=== PATIENT | male | born 1965 | race Caucasian/White ===

== ENCOUNTER 2024-08-14 14:39 | Emergency (ER) | payer OTHER, SELFPAY ==
[2024-08-14 14:42] VITALS: BP 144/73; PULSE 90; RESP 18; TEMP 36.5; O2SAT 99; BMI 21.2
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
[2024-08-14] MEDS: BACITRACIN OINT 0.9 GM PCKT 1 APPLIC TOP (15:25)
--- NOTE | 2024-08-14 15:54 | CM.SWNOTE ---
ED ELECTRICAL ENGINEERING MANAGER Note This ELECTRICAL ENGINEERING MANAGER receives referral to assist ED provider with wound care referral. ED provider fills out referral form, ELECTRICAL ENGINEERING MANAGER faxes referral, clincals and face sheet to wound care clinic. ELECTRICAL ENGINEERING MANAGER calls wound care clinic and leaves VM regarding referral. Patient to d/c to home upon medical clearance, patient to f/u with wound care referral. Marti Wong, MARKETING TRAFFIC COORDINATOR
== END 2024-08-14 15:52 | disposition home or self-care (01) ==
PROVIDERS: Emergency Provider Physician Assistant
DX: T25.222A Burn of second degree of left foot, initial encounter (principal); L03.116 Cellulitis of left lower limb; F17.210 Nicotine dependence, cigarettes, uncomplicated; B95.62 Methicillin resistant Staphylococcus aureus infection as the cause of diseases classified elsewhere
CPT/HCPCS: 87070; 87075; 87077; 87147; 87186; 87205; 99282